=== PATIENT | female | born 1995 | race Caucasian/White ===

== ENCOUNTER 2018-10-29 17:38 | Emergency (ER) | payer OTHER ==
[2018-10-29 17:44] VITALS: RESP 18
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
[2018-10-29 19:26] VITALS: BP 122/60; PULSE 78; TEMP 98; O2SAT 100
== END 2018-10-29 19:25 | disposition home or self-care (01) ==
LOC: H.ER 17:38
DX: S29.012A Strain of muscle and tendon of back wall of thorax, initial encounter (principal); V73.6XXA Passenger on bus injured in collision with car, pick-up truck or van in traffic accident, initial encounter; J45.909 Unspecified asthma, uncomplicated
CPT/HCPCS: 71101; 72070; 81025; 96372; 99283; J1885